=== PATIENT | male | born 1940 | race Caucasian/White ===

== ENCOUNTER 2022-06-19 17:30 | Emergency (ER) | payer MEDICARE ==
[~2022-06-19] VITALS: Ht 188 cm; Wt 80.7 kg
[2022-06-19] MEDS ORDERED: ACETAMINOPHEN 325 MG SUPP PR ONE (18:45)
[2022-06-19 19:11] LABS: BASOPHILS # (AUTO) 0.1 (0.0-0.1); BASOPHILS % 0.4 % (0.0-1.0); EOSINOPHILS # (AUTO) 0.2 (0.0-0.4); EOSINOPHILS % 1.3 % (0.0-6.0); HEMATOCRIT 32.6 % (38.2-49.6); HEMOGLOBIN 10.8 g/dL (14.0-18.0); LYMPHOCYTES # (AUTO) 1.2 (1.0-3.2); LYMPHOCYTES % 10.9 % (18.0-39.1); MEAN CORPUSCULAR HEMOGLOBIN 30.7 pg (28-32); MEAN CORPUSCULAR HGB CONC 33.1 g/dL (31-35); MEAN CORPUSCULAR VOLUME 92.6 fL (81-99); MONOCYTES # (AUTO) 1.4 (0.2-0.8); MONOCYTES % 12.4 % (4.4-11.3); NEUTROPHILS # (AUTO) 8.2 (2.1-6.9); NEUTROPHILS % 73.8 % (38.7-80.0); PLATELET COUNT 329 x10e3/uL (140-360); RED BLOOD COUNT 3.52 x10e6/uL (4.3-5.7); RED CELL DISTRIBUTION WIDTH 11.4 % (11.7-14.4)
[2022-06-19 19:22] LABS: ALBUMIN 2.8 g/dL (3.5-5.0); ALBUMIN/GLOBULIN RATIO 0.8 (0.8-2.0); ANION GAP 16.1 mmol/L (8-16); CALCIUM 8.8 mg/dL (8.4-10.2); CREATININE, SERUM 0.75 mg/dL (0.72-1.25); LIPASE 8 U/L (8-78); POTASSIUM 4.1 mmol/L (3.5-5.1)
[2022-06-19 21:16] VITALS: BP 106/61
== END 2022-06-19 21:15 | disposition home or self-care (01) ==
LOC: ER 18:18
DX: R52 Pain, unspecified (principal); G62.9 Polyneuropathy, unspecified; Z20.822 Contact with and (suspected) exposure to COVID-19; R94.31 Abnormal electrocardiogram [ECG] [EKG]
CPT/HCPCS: 36415; 71045; 80053; 83690; 84484; 85025; 93005; 99284; U0002

== ENCOUNTER 2022-07-03 08:17 | Inpatient (IN) | payer MEDICARE ==
[~2022-07-03] VITALS: Ht 193 cm; Wt 80.7 kg
[2022-07-03] MEDS ORDERED: SODIUM CHLORIDE 0.9% 500ML 500 ML IV ONE ×2 (08:45→10:00)
[2022-07-03 08:57] LABS: BASOPHILS % 0.2 % (0.0-1.0); EOSINOPHILS # (AUTO) 0.1 (0.0-0.4); EOSINOPHILS % 0.6 % (0.0-6.0); HEMATOCRIT 35.5 % (38.2-49.6); HEMOGLOBIN 11.6 g/dL (14.0-18.0); LYMPHOCYTES # (AUTO) 0.9 (1.0-3.2); LYMPHOCYTES % 6.9 % (18.0-39.1); MEAN CORPUSCULAR HEMOGLOBIN 29.7 pg (28-32); MEAN CORPUSCULAR HGB CONC 32.7 g/dL (31-35); MONOCYTES # (AUTO) 1.2 (0.2-0.8); MONOCYTES % 9.9 % (4.4-11.3); NEUTROPHILS # (AUTO) 10.1 (2.1-6.9); NEUTROPHILS % 81.5 % (38.7-80.0); PLATELET COUNT 336 x10e3/uL (140-360); RED CELL DISTRIBUTION WIDTH 11.8 % (11.7-14.4)
[2022-07-03 09:08] LABS: INR 1.18
[2022-07-03 09:09] LABS: PARTIAL THROMBOPLASTIN TIME 37.7 seconds (23.8-35.5)
[2022-07-03 09:18] LABS: ALANINE AMINOTRANSFERASE 32 IU/L (0-55); ALKALINE PHOSPHATASE 63 IU/L (40-150); ANION GAP 17.2 mmol/L (8-16); BLOOD UREA NITROGEN 13 mg/dL (7-26); BUN/CREATININE RATIO 20 (6-25); CALCIUM 9.1 mg/dL (8.4-10.2); CARBON DIOXIDE 30 mmol/L (22-29); CHLORIDE 91 mmol/L (98-107); CREATINE KINASE 51 IU/L (30-200); CREATININE, SERUM 0.64 mg/dL (0.72-1.25); GLUCOSE 153 mg/dL (74-118); MAGNESIUM 2.2 MG/DL (1.3-2.1); POTASSIUM 3.2 mmol/L (3.5-5.1); SODIUM 135 mmol/L (136-145)
[2022-07-03] MEDS ORDERED: METHYLPREDNISOLONE SOD SUCC 125 MG/2ML VIAL IV STA (09:21)
[2022-07-03 09:25] LABS: COLOR,URINE YELLOW (YELLOW)
[2022-07-03 09:26] LABS: BACTERIA,URINE FEW /HPF; CLARITY,URINE SL CLOUDY (CLEAR); KETONES,URINE 2+ (NEGATIVE); LEUKOCYTE ESTERASE ,URINE NEGATIVE (NEGATIVE); NITRITE,URINE NEGATIVE (NEGATIVE); PROTEIN,URINE DIPSTICK 1+ (NEGATIVE); RBC,URINE 0-5 /HPF (0-5); WBC,URINE (MAN) 0-5 /HPF (0-5)
[2022-07-03 09:27] LABS: MUCUS,URINE FEW (RARE)
[2022-07-03] MEDS ORDERED: IPRATROPIUM BROMIDE 0.02% 2.5 ML NEB NEB ONE (09:30)
[2022-07-03] MEDS ORDERED: LEVALBUTEROL HCL SOLN NEBU 0.63 MG/3 ML NEB INH ONE (09:30)
[2022-07-03 09:35] LABS: ERYTHROCYTE SEDIMENTATION RATE 80 mm/hr (0-13)
[2022-07-03 09:38] LABS: THYROID STIMULATING HORMONE 2.015 uIU/mL (0.350-4.940)
[2022-07-03] MEDS ORDERED: IOPAMIDOL 370 MG/ML 100 ML INFUS..BTL INJ ONE (10:29)
[2022-07-03] MEDS ORDERED: LEVALBUTEROL HCL SOLN NEBU 0.63 MG/3 ML NEB INH PRN (11:45)
[2022-07-03] MEDS ORDERED: ONDANSETRON HCL INJ 2MG/ML 2ML 2 MG/ML VIAL IV PRN (11:45)
[2022-07-03] MEDS: IPRATROPIUM BROMIDE 0.02% 2.5 ML NEB NEB SCH ×3 (12:00→23:45)
[2022-07-03] MEDS ORDERED: ENOXAPARIN INJ 80 MG/0.8 ML SYR SC ONE (12:00)
[2022-07-03] MEDS ORDERED: ONDANSETRON HCL INJ 2MG/ML 2ML 2 MG/ML VIAL IV ONE (12:00)
[2022-07-03] MEDS ORDERED: Morphine 2mg Syringe 2 MG/ML SYR IV ONE (12:00)
[2022-07-03 13:20] VITALS: BP 120/77
[2022-07-03 14:25] LABS: CREATINE KINASE MB 1.7 ng/mL (0-5.0)
[2022-07-03 15:49] VITALS: BP 113/77
[2022-07-03 20:00] VITALS: BP 118/75
[2022-07-03 22:10] LABS: CREATINE KINASE 42 IU/L (30-200)
[2022-07-04] VITALS (8 sets, daily range): BP systolic 99–121; BP diastolic 53–85
[2022-07-04 06:19] LABS: BASOPHILS % 0.1 % (0.0-1.0); HEMATOCRIT 29.3 % (38.2-49.6); HEMOGLOBIN 9.9 g/dL (14.0-18.0); LYMPHOCYTES # (AUTO) 0.9 (1.0-3.2); LYMPHOCYTES % 8.9 % (18.0-39.1); MEAN CORPUSCULAR HEMOGLOBIN 29.6 pg (28-32); MEAN CORPUSCULAR HGB CONC 33.8 g/dL (31-35); MEAN CORPUSCULAR VOLUME 87.7 fL (81-99); MONOCYTES # (AUTO) 1.3 (0.2-0.8); MONOCYTES % 12.5 % (4.4-11.3); NEUTROPHILS # (AUTO) 8.1 (2.1-6.9); NEUTROPHILS % 77.2 % (38.7-80.0); PLATELET COUNT 305 x10e3/uL (140-360); RED BLOOD COUNT 3.34 x10e6/uL (4.3-5.7); RED CELL DISTRIBUTION WIDTH 11.8 % (11.7-14.4)
[2022-07-04 06:55] LABS: ALBUMIN 2.2 g/dL (3.5-5.0); ALBUMIN/GLOBULIN RATIO 0.7 (0.8-2.0); CALCIUM 8.6 mg/dL (8.4-10.2); CREATININE, SERUM 0.62 mg/dL (0.72-1.25)
[2022-07-04] MEDS: IPRATROPIUM BROMIDE 0.02% 2.5 ML NEB NEB SCH ×3 (07:05→19:20)
[2022-07-04 07:43] LABS: CREATINE KINASE 37 IU/L (30-200)
[2022-07-04] MEDS: Morphine 2mg Syringe 2 MG/ML SYR IV PRN ×2 (09:35→16:57)
[2022-07-04] MEDS ORDERED: SODIUM CHLORIDE 0.9% 500ML 500 ML ONE (09:44)
[2022-07-04] MEDS ORDERED: ACETAMINOPHEN/CODEINE 300MG - 30MG TAB PO PRN (12:30)
[2022-07-04] MEDS ORDERED: POTASSIUM CHLORIDE 20 MEQ TAB CR PO ONE (13:15)
[2022-07-05 01:22] VITALS: BP 150/97
[2022-07-05] MEDS: IPRATROPIUM BROMIDE 0.02% 2.5 ML NEB NEB SCH ×2 (02:20→07:07)
[2022-07-05 05:22] VITALS: BP 136/82
[2022-07-05 06:40] LABS: BASOPHILS % 0.2 % (0.0-1.0); EOSINOPHILS # (AUTO) 0.1 (0.0-0.4); EOSINOPHILS % 0.5 % (0.0-6.0); HEMATOCRIT 31.6 % (38.2-49.6); HEMOGLOBIN 10.5 g/dL (14.0-18.0); LYMPHOCYTES # (AUTO) 0.9 (1.0-3.2); LYMPHOCYTES % 7.4 % (18.0-39.1); MEAN CORPUSCULAR HEMOGLOBIN 29.5 pg (28-32); MEAN CORPUSCULAR HGB CONC 33.2 g/dL (31-35); MEAN CORPUSCULAR VOLUME 88.8 fL (81-99); MONOCYTES # (AUTO) 1.3 (0.2-0.8); NEUTROPHILS # (AUTO) 9.5 (2.1-6.9); NEUTROPHILS % 79.8 % (38.7-80.0); PLATELET COUNT 330 x10e3/uL (140-360); RED BLOOD COUNT 3.56 x10e6/uL (4.3-5.7); RED CELL DISTRIBUTION WIDTH 11.9 % (11.7-14.4)
[2022-07-05 07:08] LABS: ANION GAP 13.7 mmol/L (8-16); CALCIUM 8.7 mg/dL (8.4-10.2); CREATININE, SERUM 0.64 mg/dL (0.72-1.25)
[2022-07-05 07:16] LABS: POTASSIUM 2.7 mmol/L (3.5-5.1)
[2022-07-05 08:10] VITALS: BP 137/97
[2022-07-05] MEDS: Morphine 2mg Syringe 2 MG/ML SYR IV PRN (08:12)
[2022-07-05 08:45] VITALS: BP 137/97
[2022-07-05] MEDS ORDERED: AZITHROMYCIN 250 MG TAB PO SCH (09:00)
[2022-07-05] MEDS ORDERED: POTASSIUM CHLORIDE 20 MEQ TAB CR PO ONE (09:15)
[2022-07-05] MEDS ORDERED: POTASSIUM CHLORIDE 20MEQ/100ML 100 ML IV ONE (09:15)
[2022-07-05 11:54] VITALS: BP 134/78
== END 2022-07-05 12:54 | disposition hospice, home (50) | DRG 180 ==
LOC: ER 08:21 → ERHOLD 11:45 → MED/SURG3 13:22
PROVIDERS: ADMIT Internal Medicine; ATTEND Internal Medicine
DX: C34.92 Malignant neoplasm of unspecified part of left bronchus or lung (principal); G93.41 Metabolic encephalopathy; J18.9 Pneumonia, unspecified organism; C77.1 Secondary and unspecified malignant neoplasm of intrathoracic lymph nodes; C79.51 Secondary malignant neoplasm of bone; C79.72 Secondary malignant neoplasm of left adrenal gland; C79.71 Secondary malignant neoplasm of right adrenal gland; C34.91 Malignant neoplasm of unspecified part of right bronchus or lung; I48.0 Paroxysmal atrial fibrillation; Z79.01 Long term (current) use of anticoagulants; E87.6 Hypokalemia; G62.9 Polyneuropathy, unspecified; E78.5 Hyperlipidemia, unspecified; Z87.891 Personal history of nicotine dependence; I10 Essential (primary) hypertension; D63.8 Anemia in other chronic diseases classified elsewhere; Z82.49 Family history of ischemic heart disease and other diseases of the circulatory system; Z20.822 Contact with and (suspected) exposure to COVID-19
CPT/HCPCS: 0223U; 36415; 70450; 71045; 71260; 80048; 80053; 81001; 82550; 82553; 83735; 83880; 84443; 84484; 85025; 85379; 85610; 85651; 85730; 87040; 87086; 93005; 94640; 94799; 99251; 99284; J0456; J0696; J1650; J2270; J2405; J2930; J3480; J7040; J7050; Q9967